=== PATIENT | female | born 1980 | race American Indian/Alaskan Native ===

== ENCOUNTER 2017-03-03 08:40 | Outpatient (CLI) | payer OTHER ==
--- NOTE | 2017-03-03 09:11 | RAD ---
FOUR VIEWS LUMBAR SPINE: DATE: 03/03/17. HISTORY: Lower back pain with hip pain radiating down into the left leg. Lumbar disk degeneration. FINDINGS: There are 5 [id number] lumbar-type vertebral bodies. The vertebral body heights and interverteb ral disk spaces are within normal limits. There is no fracture or subluxation involving the lumbar s pine. IMPRESSION: No fracture or subluxation involving the lumbar spine. POS: BRIGID
== END 2017-03-03 08:41 | disposition home or self-care (01) ==
LOC: TBSIIMAG 08:40
PROVIDERS: ATTEND Surgery
DX: M51.36 Other intervertebral disc degeneration, lumbar region (principal); M51.26 Other intervertebral disc displacement, lumbar region
CPT/HCPCS: 72110

== ENCOUNTER 2017-04-24 15:14 | Outpatient (CLI) | payer OTHER ==
--- NOTE | 2017-04-24 17:10 | MRI ---
CERVICAL SPINE MRI NONCONTRAST 04/24/17 COMPARISON: No prior comparison. INDICATION: Cervical radiculopathy, right arm weakness. FINDINGS: The vertebral body heights and disc space heights are relatively well preserved throughout the cervic al spine. There is no significant abnormality at the craniocervical junction. C2-3: No high grade central canal or foraminal stenosis. C3-4: There is a mild broad based disc bulge without significant compromise of the central canal. Min imal narrowing of the right neural foramen. No high grade left foraminal stenosis. C4-5: There is no high grade central canal or foraminal stenosis. Mild posterior disc bulge is presen t. C5-6: Mild disc bulge is present without high grade central canal and left foraminal stenosis. There is mild narrowing of the right neural foramen. C6-7: No high grade central canal or neural foraminal stenosis. C7-T1: No significant compromise of central canal or neural foramina. There is a dilated nerve root s leeve on the left incidentally noted. T2 hyperintensity of the partially visualized left neck may relate to a thyroid nodule, although this is partially obscured by saturation band and is not reliably evaluated. No acute marrow edema. The imaged cervical spine cord maintains appropriate contour and signal intens ity. IMPRESSION: Minimal degenerative change of cervical spine. Suspicion for left thyroid nodule. Recommend dedicated thyroid ultrasound. POS: BRIGID
== END 2017-04-24 15:15 | disposition home or self-care (01) ==
LOC: TBSIIMAG 15:14
PROVIDERS: ATTEND Psychiatry & Neurology Neurology
DX: M47.22 Other spondylosis with radiculopathy, cervical region (principal)
CPT/HCPCS: 72141

== ENCOUNTER 2017-05-06 13:20 | Outpatient (CLI) | payer OTHER ==
--- NOTE | 2017-05-06 15:00 | ULT ---
ULTRASOUND THYROID: HISTORY: Followup MRI. COMPARISON: MRI 04/24/17. FINDINGS: Right lobe measures 3.8 x 1.2 x 1 cm. The left lobe measures 3.8 x 1.2 x 1.4 cm. Isthmus measures 2 mm in AP dimension. Within then left lobe of the thyroid corresponding to the MRI findings is a solid hypoechoic nodule w hich is wider than tall and is smoothly marginated without echogenic foci. This nodule measures 1.2 x 0.6 x 0.7 cm. IMPRESSION: Left lobe of thyroid nodule corresponding to MRI findings is T-RADS 4: moderately suspicious. Given its size, followup is recommended. A followup ultrasound in 6 months would be beneficial. POS: BRIGID
== END 2017-05-06 13:21 | disposition home or self-care (01) ==
LOC: ULT 13:20
PROVIDERS: ATTEND Psychiatry & Neurology Neurology
DX: E04.1 Nontoxic single thyroid nodule (principal)
CPT/HCPCS: 76536

== ENCOUNTER 2018-05-20 08:46 | Outpatient (CLI) | payer OTHER ==
--- NOTE | 2018-05-20 09:38 | ULT ---
FUltrasound thyroid: 05/20/2018 HISTORY: Follow-up solitary thyroid nodule isn't 37-year-old female. COMPARISON: 05/06/2017 FINDINGS: Isthmus: 0.1 cm AP Right lobe: 3.3 x 0.9 x 1.3 cm Left lobe: 3.3 x 1.3 x 1.1 cm. At the mid pole of the left lobe there is a nodule that measures 0.8 x 0.6 x 1.2 cm. Composition: Solid: 2 points Echogenicity: Hypoechoic: 2 points Shape: Wider than tall: 2 points Margin: Smooth: 0.6 Echogenic foci: None: 0.6 Total points: 4 TIRADS Category 4: Moderately suspicious General recommendations for category for lesions: FNA if greater than or equal to 1.5 cm. Follow if greater than or equal to 1 cm (at 1, 2, 3, and 5 years) There has been no significant interval change. IMPRESSION: 1. Solitary left thyroid nodule. 2. No significant interval change after one year. 3. Recommend continued follow-up thyroid ultrasounds in May or April 2019, 2020, and 2022.
== END 2018-05-20 08:47 | disposition home or self-care (01) ==
LOC: SCSULT 08:46
PROVIDERS: ATTEND Family Medicine
DX: E04.1 Nontoxic single thyroid nodule (principal)
CPT/HCPCS: 76536

== ENCOUNTER 2020-04-28 09:21 | Outpatient (CLI) | payer OTHER | END 2020-04-28 09:22 | disposition home or self-care (01) | LOC: BICMRI 09:21 | PROVIDERS: ATTEND Surgery | DX: M48.062 Spinal stenosis, lumbar region with neurogenic claudication (principal); M47.26 Other spondylosis with radiculopathy, lumbar region | CPT/HCPCS: 72110; 72148 ==

== ENCOUNTER 2020-05-02 10:01 | Outpatient (CLI) | payer OTHER ==
[2020-05-02 12:27] LABS: Hemoglobin 11.6 g/dL (12.0-15.5); Mean Corpuscular HGB CONC 32.9 g/dL (32.0-36.0); Mean Corpuscular Hemoglobin 29.4 pg (27.0-33.0); Mean Corpuscular Volume 89.4 fl (81.6-98.3); Mean Platelet Volume 11.4 fl (7.4-10.4); Platelet Count 280 10x3/uL (150-450); RBC Distribution Width 13.2 % (11.5-14.5); Red Blood Cell (RBC) Count 3.95 10x6/uL (3.90-5.03); White Blood Cell (WBC) Count 4.2 10x3/uL (3.5-10.5)
[2020-05-02 12:39] LABS: Anion Gap 15 mmol/L (10-20); BUN (Urea Nitrogen) 15 mg/dL (7.0-18.7); Calc. Creatinine Clearance 0 mL/min (70-130); Calcium 9.5 mg/dL (7.8-10.44); Carbon Dioxide 26 mmol/L (22-29); Chloride 104 mmol/L (98-107); Glucose 87 mg/dL (70-105); Potassium 4.1 mmol/L (3.5-5.1); Sodium 141 mmol/L (136-145)
[2020-05-02 12:57] LABS: PTT 28.4 sec (22.0-33.0); Prothrombin Time 10.6 sec (9.5-12.1)
[2020-05-02 20:03] LABS: SARS-CoV-2 PCR by NAA Not Detected (NotDetected)
== END 2020-05-02 10:02 | disposition home or self-care (01) ==
LOC: LABBT 10:01
PROVIDERS: ATTEND Surgery
DX: Z01.818 Encounter for other preprocedural examination (principal); M54.16 Radiculopathy, lumbar region; M48.061 Spinal stenosis, lumbar region without neurogenic claudication; Z20.822 Contact with and (suspected) exposure to COVID-19
CPT/HCPCS: 80048; 85027; 85610; 85730; 87635; 93005; 93010; U0003; U0005

== ENCOUNTER 2020-05-05 05:37 | Observation (INO) | payer OTHER ==
[2020-05-03 14:01] VITALS: BMI 18.0
[2020-05-05] MEDS ORDERED: Fentanyl 100 MCG/2 ML VIAL ONE ×3 (06:30→10:50)
[2020-05-05] MEDS ORDERED: Thrombin 5000 UNITS/5 ML VIAL ONE (06:36)
[2020-05-05] MEDS ORDERED: Levofloxacin 500 mg/D5W 100 ml Premix Bag ONE (06:52)
[2020-05-05] MEDS ORDERED: Clindamycin/D5W 900 mg/50 ml Premix Bag ONE (06:52)
[2020-05-05] MEDS ORDERED: Midazolam HCl 2 mg/2 ml Vial ONE (07:30)
[2020-05-05] MEDS ORDERED: Dexamethasone 20 MG/5 ML VIAL ONE (08:10)
[2020-05-05] MEDS ORDERED: Ketorolac Tromethamine 30 MG/ML VIAL ONE (08:10)
[2020-05-05] MEDS ORDERED: PROPOFOL 200 MG/20 ML VIAL ONE (08:10)
[2020-05-05] MEDS ORDERED: Ondansetron PF 4 MG/2 ML Vial ONE (08:10)
[2020-05-05] MEDS ORDERED: Rocuronium Bromide 10 MG/ML (10ML VIAL) ONE (08:10)
[2020-05-05] MEDS ORDERED: PHENYLEPHRINE-NS 100 MCG/ML 10 ML SYRINGE ONE (08:10)
[2020-05-05] MEDS ORDERED: Lidocaine 1% PF 5 ML VIAL ONE (08:10)
[2020-05-05] MEDS ORDERED: SUGAMMADEX SODIUM 200 MG/2 ML VIAL ONE (09:34)
[2020-05-05] MEDS ORDERED: HYDROmorphone 0.5 MG/0.5 ML SYRINGE ONE ×3 (10:55→11:54)
[2020-05-05] MEDS ORDERED: traMADol HCl 50 MG TAB PO PRN (11:34)
[2020-05-05] MEDS ORDERED: Mag-Al 1200 mg/1200 mg/30 ML UDCUP PO PRN (11:34)
[2020-05-05] MEDS ORDERED: Bisacodyl 10 MG SUPP PR PRN (11:34)
[2020-05-05] MEDS ORDERED: Morphine 2 MG/ML VIAL SLOW IVP PRN (11:34)
[2020-05-05] MEDS ORDERED: Acetaminophen/Codeine 30-300mg Tablet PO PRN (11:34)
[2020-05-05] MEDS ORDERED: Acetaminophen 325 MG TAB PO PRN (11:34)
[2020-05-05] MEDS ORDERED: Milk Of Magnesia 30 ML UDCUP PO PRN (11:34)
[2020-05-05] MEDS ORDERED: Cyclobenzaprine 10 MG TAB PO PRN (11:38)
[2020-05-05] MEDS ORDERED: OLANZapine 2.5 MG TAB PO PRN (11:39)
[2020-05-05] MEDS ORDERED: Acetaminophen 500 MG TAB PO PRN (11:39)
[2020-05-05] MEDS ORDERED: busPIRone HCl 5 MG TAB PO PRN (12:02)
[2020-05-05] MEDS ORDERED: Mirtazapine 15 MG TAB PO PRN (12:03)
[2020-05-05] MEDS ORDERED: Ondansetron PF 4 MG/2 ML Vial IVP PRN ×2 (13:39→16:30)
[2020-05-05] MEDS ORDERED: Promethazine HCl 12.5 MG in Sodium Chloride 0.9% 50 ML IVPB PRN (15:51)
[2020-05-05] MEDS: Clindamycin/D5W 900 MG in Premix Bag 1 BAG IVPB SCH ×2 (18:02→22:56)
[2020-05-05] MEDS: HYDROcodone/Acetaminophen 7.5/325 mg Tablet PO PRN ×2 (18:02→23:02)
[2020-05-05] MEDS: Sodium Chloride 0.9% 1,000 ML IV SCH (18:07)
[2020-05-06] MEDS: Sodium Chloride 0.9% 1,000 ML IV SCH (03:31)
[2020-05-06] MEDS: HYDROcodone/Acetaminophen 7.5/325 mg Tablet PO PRN ×2 (06:01→11:37)
[2020-05-06 06:09] VITALS: TEMP 98.5
[2020-05-06] MEDS ORDERED: lamoTRIgine 100 MG TAB PO SCH (09:00)
[2020-05-06] MEDS ORDERED: Famotidine 20 MG TAB PO SCH (09:00)
[2020-05-06 11:20] VITALS: BP 86/51
== END 2020-05-06 14:46 | disposition home or self-care (01) ==
LOC: SDC 05:37 → SURG A 11:34 → SDC 16:09 → SURG A 16:09
PROVIDERS: ADMIT Surgery; ATTEND Surgery
PROC: 01NB0ZZ Release Lumbar Nerve, Open Approach (ICD-10-PCS; principal; 2020-05-05)
PROC: 0ST20ZZ Resection of Lumbar Vertebral Disc, Open Approach (ICD-10-PCS; 2020-05-05)
DX: M48.062 Spinal stenosis, lumbar region with neurogenic claudication (principal); M51.16 Intervertebral disc disorders with radiculopathy, lumbar region; Z79.899 Other long term (current) drug therapy; Z88.0 Allergy status to penicillin; Z88.1 Allergy status to other antibiotic agents; Z88.2 Allergy status to sulfonamides; Z88.8 Allergy status to other drugs, medicaments and biological substances
CPT/HCPCS: 76000; 96365; 96366; 96375; 96376; G0378; J1100; J1170; J1885; J1956; J2250; J2270; J2405; J2704; J3010; J3370; J3490

== ENCOUNTER 2020-11-09 10:12 | Outpatient (CLI) | payer OTHER | END 2020-11-09 10:13 | disposition home or self-care (01) | LOC: BICMRI 10:12 | PROVIDERS: ATTEND Surgery | DX: M47.26 Other spondylosis with radiculopathy, lumbar region (principal); Z98.890 Other specified postprocedural states | CPT/HCPCS: 72110; 72148 ==

== ENCOUNTER 2020-11-09 11:32 | Outpatient (CLI) | payer OTHER | END 2020-11-09 11:33 | disposition home or self-care (01) | LOC: BICRAD 11:32 | PROVIDERS: ATTEND Surgery | DX: M54.16 Radiculopathy, lumbar region (principal); M54.5 Low back pain; Z98.890 Other specified postprocedural states | CPT/HCPCS: 72110 ==

== ENCOUNTER 2022-04-08 08:49 | Outpatient (CLI) | payer OTHER | END 2022-04-08 08:50 | disposition home or self-care (01) | LOC: TBSIIMAG 08:49 | PROVIDERS: ATTEND Nurse Practitioner Family | DX: M51.16 Intervertebral disc disorders with radiculopathy, lumbar region (principal); M47.817 Spondylosis without myelopathy or radiculopathy, lumbosacral region; M47.26 Other spondylosis with radiculopathy, lumbar region; M48.061 Spinal stenosis, lumbar region without neurogenic claudication; M48.07 Spinal stenosis, lumbosacral region; Z98.890 Other specified postprocedural states | CPT/HCPCS: 72148 ==

== ENCOUNTER 2022-08-15 12:59 | Outpatient (CLI) | payer OTHER | END 2022-08-15 13:00 | disposition home or self-care (01) | LOC: ULT 12:59 | PROVIDERS: ATTEND Family Medicine | DX: N32.81 Overactive bladder (principal) | CPT/HCPCS: 76856 ==